=== PATIENT | female | born 1990 | race Caucasian/White ===

== ENCOUNTER 2020-10-28 09:24 | Inpatient (IN) | payer OTHER ==
[2020-10-28] MEDS ORDERED: Sodium Chloride 0.9% 10 ML Syringe FLUSH PRN (09:44)
[2020-10-28] MEDS ORDERED: Ondansetron 4 MG/2 ML SDV IVPUSH PRN (09:44)
[2020-10-28] MEDS ORDERED: Methylergonovine 0.2 MG/1 ML Amp IM PRN (09:44)
[2020-10-28] MEDS ORDERED: Lactated Ringers 1,000 ML IV ONE (09:44)
[2020-10-28] MEDS ORDERED: Carboprost Tromethamine 250 MCG/1 ML Amp IM PRN (09:44)
[2020-10-28] MEDS ORDERED: Misoprostol 400 MCG (4 X 100 MCG TAB) RECTAL PRN (09:44)
[2020-10-28] MEDS ORDERED: Lidocaine 1% 30 ML SDV INJECT PRN (09:44)
[2020-10-28] MEDS ORDERED: Tranexamic Acid 1,000 MG in Sodium Chloride 0.9% 100 ML IV PRN (09:44)
[2020-10-28] MEDS: Lactated Ringers 1,000 ML IV SCH ×2 (12:42→20:38)
[2020-10-28] MEDS: Oxytocin/Normal Saline 30 UNIT/500 ML BAG IV SCH (12:43)
--- NOTE | 2020-10-28 16:50 | PCM.DEL ---
L & D Note - General Info Date of Service: 10/28/20 - Patient Data Vitals - Most Recent: Last Vital Signs Temp 98.6 F 10/28/20 09:56 Pulse 100 10/28/20 12:50 Resp BP 117/76 10/28/20 12:50 Pulse Ox Weight - Most Recent: 170 lb Lab Results Last 24 Hours: Laboratory Results - last 24 hr 10/28/20 10/28/20 10/28/20 Range/Units 10:00 11:12 11:12 WBC 11.3 H (5.0-10.0) 10^3/uL RBC 4.12 L (4.2-5.4) 10^6/uL Hgb 12.4 (12.0-16.0) g/dL Hct 36.4 L (37.0-47.0) % MCV 88.3 (80-100) fL MCH 30.1 (27.0-34.0) pg MCHC 34.1 (33.0-35.0) g/dL Plt Count 277 (150-450) 10^3/uL SARS-CoV-2 RNA (VERNON) Negative (NEGATIVE) Blood Type O POSITIVE Gel Antibody Screen Negative Med Orders - Current: Current Medications Acetaminophen (Tylenol) 650 mg PO Q4H PRN PRN Reason: Pain (Mild 1-3) and fever Carboprost Tromethamine (Hemabate Ds) 250 mcg IM ASDIRECTED PRN PRN Reason: HEMORRHAGE Tranexamic Acid 1,000 mg/ (Sodium Chloride) 110 mls @ 660 mls/hr IV ONETIME PRN PRN Reason: Bleeding Oxytocin/Sodium Chloride (Pitocin In Ns 30 Unit/500 Ml) 30 unit in 500 mls @ 2 mls/hr IV TITRATE KADIE; Protocol Last Titration: 10/28/20 14:05 Dose: 6 munits/min, 6 mls/hr Documented by: Lactated Ringer's (Ringers, Lactated) 1,000 mls @ 125 mls/hr IV ASDIRECTED KADIE Last Admin: 10/28/20 12:42 Dose: 125 mls/hr Documented by: Lidocaine HCl (Xylocaine-Mpf 1%) 30 ml INJECT ASDIRECTED PRN PRN Reason: Perineal Repair Methylergonovine Maleate (Methergine) 0.2 mg IM ASDIRECTED PRN PRN Reason: Hemorrhage Misoprostol (Cytotec) 800 mcg RECTAL ASDIRECTED PRN PRN Reason: Hemorrhage Ondansetron HCl (Zofran) 4 mg IVPUSH Q4H PRN PRN Reason: Nausea/Vomiting Sodium Chloride (Saline Flush) 10 ml FLUSH ASDIRECTED PRN PRN Reason: Keep Vein Open Discontinued Medications Lactated Ringer's (Ringers, Lactated) 1,000 mls @ 999 mls/hr IV BOLUS ONE Stop: 10/28/20 10:44 - My Orders Last 24 Hours: My Active Orders 10/28/20 09:44 Patient Status [ADT] Routine Communication Order [RC] ASDIRECTED Notify Provider Vital Signs OB [RC] ASDIRECTED Notify Provider [RC] PRN Up ad Maria D [RC] ASDIRECTED Vital Signs [RC] 08,20 Acetaminophen [TylenoL] 650 mg PO Q4H PRN Carboprost Tromethamine [Hemabate DS] 250 mcg IM ASDIRECTED PRN Lidocaine 1% [Xylocaine-MPF 1%] 30 ml INJECT ASDIRECTED PRN Methylergonovine [Methergine] 0.2 mg IM ASDIRECTED PRN Ondansetron [Zofran] 4 mg IVPUSH Q4H PRN Sodium Chloride 0.9% [Saline Flush] 10 ml FLUSH ASDIRECTED PRN Tranexamic Acid [Cyklokapron] 1,000 mg Sodium Chloride 0.9% [Normal Saline] 100 ml IV ONETIME miSOPROStoL [Cytotec] 800 mcg RECTAL ASDIRECTED PRN Saline Lock Insert [OM.PC] Routine Resuscitation Status Routine 10/28/20 09:45 Lactated Ringers [Ringers, Lactated] 1,000 ml IV ASDIRECTED Oxytocin/Normal Saline [Pitocin in NS 30 UNIT/500 ML] 30 unit in 500 ml IV TITRATE 10/28/20 09:46 Pump Management, Intrathecal [RC] ASDIRECTED
--- NOTE | 2020-10-28 18:18 | PCM.LDHP ---
L&D History of Present Illness - General Date of Service: 10/28/20 (Admit ) Admit Problem/Dx: Patient Status Order with Admit Dx/Problem 10/28/20 09:44 Patient Status [ADT] Routine Admission Diagnosis/Problem Admission Diagnosis/Problem Unstable lie Source of Information: Patient, Family History Limitations: Reports: No Limitations - History of Present Illness Introduction:: Gilda is a delightful 30yo in at 39w1d for induction due to high risk with hx of macrosomia and unstable lie in a term multip that lives remote from hospital with a ripe cervix. she has low-lying anterior placenta now nearly 4cm from os. induction when AWNING ERECTOR here. see [facility] episode for details. hmb Timing/Duration: Reports: other (B) Location, : Reports: Uterus - Related Data Allergies/Adverse Reactions: Allergies Allergy/AdvReac Type Severity Reaction Status Date / Time No Known Allergies Allergy Verified 10/28/20 10:47 Home Medications: Home Meds Pnv No.95/Ferrous Fum/Folic AC [ Tablet] 1 tab PO DAILY 10/08/20 [History] Past Medical History Gastrointestinal History: Reports: None Other Gastrointestinal History: family hx of colon cancer and polyps AWNING ERECTOR History: Reports: Spontaneous , Therapeutic : 6 Para: 3 LMP (Approximate): Other OB/BYN History: Therapeudic due to screen positive for Trisomy 21 - Infectious Disease History Infectious Disease History: Reports: Chicken Pox - Past Surgical History HEENT Surgical History: Reports: Adenoidectomy, Tonsillectomy Other HEENT Surgeries/Procedures: both in 2011 GI Surgical History: Reports: Colonoscopy Other GI Surgeries/Procedures: Colonoscopy 2019 due to lower abdominal pain and family hx of colon cancer. Test negative Female Surgical History: Reports: D&C Social & Family History - Family History Family Medical History: No Pertinent Family History GI: Reports: Colon Polyps, Other (See Below) Other GI Family History: Colon Cancer Oncologic: Reports: Colon - Tobacco Use Tobacco Use Status *Q: Never Tobacco User Second Hand Smoke Exposure: No - Caffeine Use Caffeine Use: Reports: None - Recreational Drug Use Recreational Drug Use: No - Living Situation & Occupation Living situation: Reports: Social History Comment: . met in [place]. he is from [place], she from [place]. have 2 children and moved back--were living with her in-laws, but just moved into house in [place]. He will now be working in [place]. H&P Review of Systems - Review of Systems: Review Of Systems: Comprehensive ROS is negative, except as noted in HPI. L&D Exam - Exam Exam: See Below - Vital Signs Vital Signs: Last Vital Signs Temp 98.6 F 10/28/20 09:56 Pulse 100 10/28/20 12:50 Resp BP 117/76 10/28/20 12:50 Pulse Ox Weight: 170 lb - OB Specific Contraction Duration (sec): 60-70 Contraction Frequency (min): 2 Contraction Intensity: Moderate Movement: Active Heart Tones: Present Heart Tones per Min: 135 Heart Rate (FHR) Variability: Moderate (6-25 bmp) Presentation: Left Occiput Anterior (MARCUS) - Vance Score Vance Score Cervix Position: Anterior Vance Score Consistency: Soft Vance Score Effacement: 0-30% Vance Score Dilation: 1-2 cm Vance Score Infant's Station: -2 Vance Score Total: 6 - Exam General: Alert, Oriented HEENT: Conjunctiva Clear, EOMI, Hearing Intact, Nares Patent, Pupils Equal, Pupils Reactive Neck: Supple Lungs: Clear to Auscultation, Normal Respiratory Effort Cardiovascular: Regular Rate, Regular Rhythm GI/Abdominal Exam: Soft, Non-Tender Rectal Exam: Normal Exam, Deferred Genitourinary: Normal external exam, Cervical dilitation, Enlarged uterus Back Exam: Normal Inspection, Full Range of Motion Extremities: Normal Inspection Skin: Warm, Dry, Intact Neurological: Normal Gait, Normal Speech, Normal Tone Psychiatric: Alert, Normal Affect, Normal Mood - Patient Data Lab Results Last 24 hrs: Laboratory Results - last 24 hr 10/28/20 10/28/20 10/28/20 Range/Units 10:00 11:12 11:12 WBC 11.3 H (5.0-10.0) 10^3/uL RBC 4.12 L (4.2-5.4) 10^6/uL Hgb 12.4 (12.0-16.0) g/dL Hct 36.4 L (37.0-47.0) % MCV 88.3 (80-100) fL MCH 30.1 (27.0-34.0) pg MCHC 34.1 (33.0-35.0) g/dL Plt Count 277 (150-450) 10^3/uL SARS-CoV-2 RNA (VERNON) Negative (NEGATIVE) Blood Type O POSITIVE Gel Antibody Screen Negative Result Diagrams: 10/28/20 11:12 - Problem List (1) Term SNOMED Code(s): 62795584 ICD Code: Z34.90 - ENCNTR FOR SUPRVSN OF NORMAL , UNSP, UNSP TRIMESTER Status: Acute Current Visit: Yes (2) High risk , antepartum SNOMED Code(s): 33253841 ICD Code: O09.90 - SUPERVISION OF HIGH RISK , UNSP, UNSP TRIMESTER Status: Acute Current Visit: Yes (3) History of macrosomia in in prior , currently in third trimester SNOMED Code(s): 248286646, 457211939, 00349384525144 ICD Code: O09.293 - SUPRVSN OF PREG W POOR REPRODCTV OR OBSTET HX, THIRD TRI Status: Acute Current Visit: Yes (4) Unstable lie, antepartum condition or complication SNOMED Code(s): 349333488 ICD Code: O32.0XX0 - MATERNAL CARE FOR UNSTABLE LIE, NOT APPLICABLE OR UNSP Status: Acute Current Visit: Yes (5) Low-lying placenta without hemorrhage, third trimester SNOMED Code(s): 313172069, 309873368 ICD Code: O44.43 - LOW LYING PLACENTA NOS OR WITHOUT HEMOR, THIRD TRIMESTER Status: Acute Current Visit: Yes (6) Blood type O+ SNOMED Code(s): 070752393 ICD Code: Z67.40 - TYPE O BLOOD, RH POSITIVE Status: Acute Current Visit: Yes (7) Rubella non-immune status, antepartum SNOMED Code(s): 380752699 ICD Code: O99.891 - OTH DISEASES AND CONDITIONS COMPLICATING ; Z28.3 - UNDERIMMUNIZATION STATUS Status: Acute Current Visit: Yes (8) Group B Streptococcus not isolated SNOMED Code(s): 062136123 ICD Code: [id number] - Status: Acute Current Visit: Yes Problem List Initiated/Reviewed/Updated: Yes Orders Last 24hrs: Active Orders 24 hr Category Date Time Status Patient Status [ADT] Routine ADT 10/28/20 09:44 Active Communication Order [RC] ASDIRECTED Care 10/28/20 09:44 Active Notify Provider Vital Signs OB [RC] ASDIRECTED Care 10/28/20 09:44 Active Notify Provider [RC] PRN Care 10/28/20 09:44 Active Pump Management, Intrathecal [RC] ASDIRECTED Care 10/28/20 09:46 Active Up ad Maria D [RC] ASDIRECTED Care 10/28/20 09:44 Active Vital Signs [RC] 08,20 Care 10/28/20 09:44 Active Acetaminophen [TylenoL] Med 10/28/20 09:44 Active 650 mg PO Q4H PRN Carboprost Tromethamine [Hemabate DS] Med 10/28/20 09:44 Active 250 mcg IM ASDIRECTED PRN Lactated Ringers [Ringers, Lactated] 1,000 ml Med 10/28/20 09:45 Active IV ASDIRECTED Lidocaine 1% [Xylocaine-MPF 1%] Med 10/28/20 09:44 Active 30 ml INJECT ASDIRECTED PRN Methylergonovine [Methergine] Med 10/28/20 09:44 Active 0.2 mg IM ASDIRECTED PRN Ondansetron [Zofran] Med 10/28/20 09:44 Active 4 mg IVPUSH Q4H PRN Oxytocin/Normal Saline [Pitocin in NS 30 UNIT/500 ML] Med 10/28/20 09:45 Active 30 unit in 500 ml IV TITRATE Sodium Chloride 0.9% [Saline Flush] Med 10/28/20 09:44 Active 10 ml FLUSH ASDIRECTED PRN Tranexamic Acid [Cyklokapron] 1,000 mg Med 10/28/20 09:44 Active Sodium Chloride 0.9% [Normal Saline] 100 ml IV ONETIME miSOPROStoL [Cytotec] Med 10/28/20 09:44 Active 800 mcg RECTAL ASDIRECTED PRN Saline Lock Insert [OM.PC] Routine Oth 10/28/20 09:44 Ordered Resuscitation Status Routine Resus Stat 10/28/20 09:44 Ordered Medication Orders Acetaminophen (Tylenol) 650 mg PO Q4H PRN PRN Reason: Pain (Mild 1-3) and fever Carboprost Tromethamine (Hemabate Ds) 250 mcg IM ASDIRECTED PRN PRN Reason: HEMORRHAGE Tranexamic Acid 1,000 mg/ (Sodium Chloride) 110 mls @ 660 mls/hr IV ONETIME PRN PRN Reason: Bleeding Oxytocin/Sodium Chloride (Pitocin In Ns 30 Unit/500 Ml) 30 unit in 500 mls @ 2 mls/hr IV TITRATE KADIE; Protocol Last Titration: 10/28/20 16:45 Dose: 12 munits/min, 12 mls/hr Documented by: Titration: 10/28/20 16:12 Dose: 10 munits/min, 10 mls/hr Documented by: Titration: 10/28/20 15:42 Dose: 8 munits/min, 8 mls/hr Documented by: Titration: 10/28/20 14:05 Dose: 6 munits/min, 6 mls/hr Documented by: Titration: 10/28/20 13:21 Dose: 4 munits/min, 4 mls/hr Documented by: Admin: 10/28/20 12:43 Dose: 2 munits/min, 2 mls/hr Documented by: [place] Lactated Ringer's (Ringers, Lactated) 1,000 mls @ 125 mls/hr IV ASDIRECTED KADIE Last Admin: 10/28/20 12:42 Dose: 125 mls/hr Documented by: [place] Lidocaine HCl (Xylocaine-Mpf 1%) 30 ml INJECT ASDIRECTED PRN PRN Reason: Perineal Repair Methylergonovine Maleate (Methergine) 0.2 mg IM ASDIRECTED PRN PRN Reason: Hemorrhage Misoprostol (Cytotec) 800 mcg RECTAL ASDIRECTED PRN PRN Reason: Hemorrhage Ondansetron HCl (Zofran) 4 mg IVPUSH Q4H PRN PRN Reason: Nausea/Vomiting Sodium Chloride (Saline Flush) 10 ml FLUSH ASDIRECTED PRN PRN Reason: Keep Vein Open Assessment/Plan Comment:: Assessment: 30yo @ 39w1d for induction of high risk Hx macrosomia Unstable lie low-lying anterior placenta--now 4cm from os GBS negative blood type O+ rubella non-immune NST reactive COVID negative Plan: pt admitted. pitocin started per protocol will AROM when able. anticipate vaginal delivery. Dr. Astorga aware. all questison answered for this delightful couple. they are happy with plan and care. b
--- NOTE | 2020-10-28 20:21 | PCM.SN.2 ---
- Free Text/Narrative Note: DOS: 10-28-201999 PM Doing well. Pitocin @ 14. CXNS mild. tracing reassuring cervix nearly 4cm with cxn. still long vertex, confirmed by QLUS AROM carried out with return of copious amount of clear fluid continue to monitor closely. increase pitocin as able. further management pending her clinical course in labor. Dr. Astorga updated, anesthesia also. b
[2020-10-28] MEDS ORDERED: EPINEPHrine 1 MG/1 ML Amp ONE (21:01)
[2020-10-28] MEDS ORDERED: fentaNYL 100 MCG/2 ML SDV ONE (21:01)
[2020-10-28] MEDS ORDERED: Sodium Bicarbonate 4.2% 2.5 MEQ/5 ML SDV ONE (21:02)
--- NOTE | 2020-10-28 21:24 | PCM.SN.2 ---
- Free Text/Narrative Note: Intrathecal. Sitting position, sterile prep and drape. 1% lidocaine w bicarb for skinwheal to L2 L3 interspace. Introducer, 24 ga pencan x 1. Pos CSF, neg heme, neg parasthesia. 0.1 ml PF 1:1000 epi, 20 mcg pf sufenta, 30 mcg pf fentanyl, 0.4 ml pf NS and 6 mg of 0.75% pf Marcaine injected after CSF aspiration. Pt to L lateral position. Procedure time 2100 to 2130
[2020-10-29] MEDS ORDERED: Sodium Bicarbonate 4.2% 2.5 MEQ/5 ML SDV ONE (00:01)
[2020-10-29] MEDS ORDERED: fentaNYL 100 MCG/2 ML SDV ITHECAL ONE (00:01)
[2020-10-29] MEDS ORDERED: Sodium Chloride 0.9% 20 ML SDV ONE (00:01)
[2020-10-29] MEDS ORDERED: EPINEPHrine 1 MG/1 ML Amp ONE (00:01)
[2020-10-29] MEDS ORDERED: Measles, Mumps & Rubella Vaccine 0.5 ML SDV SUBCUT ONE (02:13)
[2020-10-29] MEDS ORDERED: Docusate Sodium 100 MG Cap PO PRN (02:13)
[2020-10-29] MEDS ORDERED: Simethicone 80 MG Tab.Chew PO PRN (02:13)
[2020-10-29] MEDS ORDERED: Benzocaine/Menthol 20%-0.5% Spray 56 GM Canister TOP PRN (02:13)
[2020-10-29] MEDS ORDERED: Zolpidem 5 MG Tab PO PRN (02:13)
[2020-10-29] MEDS: Oxytocin/Normal Saline 30 UNIT/500 ML BAG IV SCH (02:15)
--- NOTE | 2020-10-29 02:23 | PCM.DEL ---
L & D Note - General Info Date of Service: 10/29/20 (time of delivery 0057) Mother's Due Date: 11/03/20 (39w2d) - Delivery Note Labor: Induced by Oxytocin Cervical Ripening Method: Oxytocin Delivery Outcome: Livebirth Infant Delivery Method: Spontaneous Vaginal Delivery-Single Delivery Mode: Vacuum Extraction Presentation: Left Occiput Anterior (MARCUS) Nuchal Cord: None Prep: Povidone-Iodine (Betadine Anesthesia Type: Intrathecal Amniotic Fluid Description: Clear Episiotomy Type: None Laceration: None Placenta: Intact, Expressed Cord: 3 Vessels Estimated Blood Loss: 350 Resuscitation Needed: No [place]: Bulb Syringe, Stimulated, Warmed, [place] Used Provider: Meme Lazo Score 1 min: 7 Score 5 min: 9 Second Stage Interventions: Reports: Pushing Effectively, Pushing, Pulls Own Legs Back Delivery Comments (Free Text/Narrative):: 30yo WF induced for unstable lie and hx macrosomia started on pitocin on arrival today. AROM carried out with return copious clear fluid. intrathecal placed. progressed to complete and pushing well, baby slipping back up between contractions. low profile vacuum placed , and with one cxn brought to , then delivery of the head. rest of baby delivered without difficulty over intact perineum. suctioned and dried/stimulated with strong cry. placed on mom's abdomen for skin to skin contact, bonding and nursing. APGARs 7 & 9 BW 3865g/ 8lb 8oz cord doubly clamped by me, then cut by FOB cord blood sample obtained. placenta delivered intact fundus boggy intermittently, abhay anterior and fundal portions pitocin infusing, and methergine dose given X 1 EBL 350, clots expressed perineum intact mom and baby stable. routine orders and cares hmb Vacuum Extractor Progress Note - Alternative Labor Strategies Considered Alternative Labor Strategies Considered:: Reports: Yes Strategies Considered:: Reports: Contraction Intensity Adequate, Position Changes Used to Facilitate Rotation & Descent, Empty Bladder Indications Considered:: Reports: Yes Indications:: Reports: Shortening of 2nd Stage for Maternal Benefit - Patient Prepared Patient Prepared:: Reports: Yes Informed Consent:: Reports: Yes Risks: Reports: Yes Anesthesia/Analgesia Adequate:: Reports: Yes - Probability of Success High Probability of Success:: Reports: Yes Weight Estimated:: Reports: AGA Patient Diabetic:: Reports: No Pelvis Adequate:: Reports: Yes Asynclitic:: Reports: No - Application Time Maximum Application Time & Number of Pop-Offs Predetermined:: Reports: Yes Type of Vacuum Used:: Reports: Low profile Vacuum Extraction: Successful - Exit Strategy Exit strategy available:: Reports: Yes and resuscitation teams readily available:: Reports: Yes Consult as indicated:: not indicated/necessary Comments:: vacuum applied with one cxn. hmb - General Info Date of Service: 10/29/20 (time of delivery 005) - Patient Data Vitals - Most Recent: Last Vital Signs Temp 97.8 F 10/28/20 22:45 Pulse 78 10/28/20 23:20 Resp 18 10/28/20 23:20 BP 103/60 10/28/20 23:20 Pulse Ox 98 10/28/20 23:20 Weight - Most Recent: 170 lb I&O - Last 24 Hours: Intake & Output 10/28/20 10/28/20 10/29/20 14:59 22:59 06:59 Intake Total 1000 Balance 1000 Lab Results Last 24 Hours: Laboratory Results - last 24 hr 10/28/20 10/28/20 10/28/20 Range/Units 10:00 11:12 11:12 WBC 11.3 H (5.0-10.0) 10^3/uL RBC 4.12 L (4.2-5.4) 10^6/uL Hgb 12.4 (12.0-16.0) g/dL Hct 36.4 L (37.0-47.0) % MCV 88.3 (80-100) fL MCH 30.1 (27.0-34.0) pg MCHC 34.1 (33.0-35.0) g/dL Plt Count 277 (150-450) 10^3/uL SARS-CoV-2 RNA (VERNON) Negative (NEGATIVE) Blood Type O POSITIVE Gel Antibody Screen Negative Med Orders - Current: Current Medications Acetaminophen (Tylenol) 650 mg PO Q4H PRN PRN Reason: Pain (Mild 1-3) and fever Benzocaine/Menthol (Dermoplast Pain Relief [place]) 0 gm TOP Q4H PRN PRN Reason: Perineal comfort measures Carboprost Tromethamine (Hemabate Ds) 250 mcg IM ASDIRECTED PRN PRN Reason: HEMORRHAGE Docusate Sodium (Colace) 100 mg PO BID PRN PRN Reason: Constipation Tranexamic Acid 1,000 mg/ (Sodium Chloride) 110 mls @ 660 mls/hr IV ONETIME PRN PRN Reason: Bleeding Oxytocin/Sodium Chloride (Pitocin In Ns 30 Unit/500 Ml) 30 unit in 500 mls @ 2 mls/hr IV TITRATE KADIE; Protocol Last Titration: 10/28/20 23:15 Dose: 24 munits/min, 24 mls/hr Documented by: Lactated Ringer's (Ringers, Lactated) 1,000 mls @ 125 mls/hr IV ASDIRECTED KADIE Last Admin: 10/28/20 20:38 Dose: 125 mls/hr Documented by: Ibuprofen (Motrin) 800 mg PO Q8H PRN PRN Reason: Mild Pain or Fever Lidocaine HCl (Xylocaine-Mpf 1%) 30 ml INJECT ASDIRECTED PRN PRN Reason: Perineal Repair Methylergonovine Maleate (Methergine) 0.2 mg IM ASDIRECTED PRN PRN Reason: Hemorrhage Last Admin: 10/29/20 01:35 Dose: 0.2 mg Documented by: Misoprostol (Cytotec) 800 mcg RECTAL ASDIRECTED PRN PRN Reason: Hemorrhage Ondansetron HCl (Zofran) 4 mg IVPUSH Q4H PRN PRN Reason: Nausea/Vomiting Last Admin: 10/28/20 20:58 Dose: 4 mg Documented by: Prenat Multivit/[place]/Iron/Folic Ac ( Plus Iron) 1 each PO DAILY [facility] Simethicone (Simethicone) 80 mg PO Q4H PRN PRN Reason: Gas Sodium Chloride (Saline Flush) 10 ml FLUSH ASDIRECTED PRN PRN Reason: Keep Vein Open Zolpidem Tartrate (Ambien) 5 mg PO BEDTIME PRN PRN Reason: Insomnia Discontinued Medications Epinephrine HCl (Adrenalin) Confirm Administered Dose 1 mg .ROUTE .STK-MED ONE Stop: 10/28/20 21:02 Last Admin: 10/28/20 23:10 Dose: Not Given Documented by: Fentanyl (Sublimaze) Confirm Administered Dose 100 mcg .ROUTE .STK-MED ONE Stop: 10/28/20 21:02 Last Admin: 10/28/20 23:09 Dose: Not Given Documented by: Lactated Ringer's (Ringers, Lactated) 1,000 mls @ 999 mls/hr IV BOLUS ONE Stop: 10/28/20 10:44 Last Admin: 10/28/20 23:10 Dose: Not Given Documented by: Sodium Bicarbonate (Sodium Bicarbonate 4.2%) Confirm Administered Dose 2.5 meq .ROUTE .STK-MED ONE Stop: 10/28/20 21:03 Last Admin: 10/28/20 23:09 Dose: Not Given Documented by: Sufentanil Citrate (Sufenta) Confirm Administered Dose 50 mcg .ROUTE .STK-MED ONE Stop: 10/28/20 21:03 Last Admin: 10/28/20 23:09 Dose: Not Given Documented by: - Problem List & Annotations (1) Term SNOMED Code(s): 16882711 Code(s): Z34.90 - ENCNTR FOR SUPRVSN OF NORMAL , UNSP, UNSP TRIMESTER Status: Acute Current Visit: Yes (2) High risk , antepartum SNOMED Code(s): 58691306 Code(s): O09.90 - SUPERVISION OF HIGH RISK , UNSP, UNSP TRIMESTER Status: Acute Current Visit: Yes (3) History of macrosomia in in prior , currently in third trimester SNOMED Code(s): 789271839, 489997507, 88435844788323 Code(s): O09.293 - SUPRVSN OF PREG W POOR REPRODCTV OR OBSTET HX, THIRD TRI Status: Acute Current Visit: Yes (4) Unstable lie, antepartum condition or complication SNOMED Code(s): 951182604 Code(s): O32.0XX0 - MATERNAL CARE FOR UNSTABLE LIE, NOT APPLICABLE OR UNSP Status: Acute Current Visit: Yes (5) Low-lying placenta without hemorrhage, third trimester SNOMED Code(s): 891731242, 501661479 Code(s): O44.43 - LOW LYING PLACENTA NOS OR WITHOUT HEMOR, THIRD TRIMESTER Status: Acute Current Visit: Yes (6) Blood type O+ SNOMED Code(s): 675883143 Code(s): Z67.40 - TYPE O BLOOD, RH POSITIVE Status: Acute Current Visit: Yes (7) Rubella non-immune status, antepartum SNOMED Code(s): 650316721 Code(s): O99.891 - OTH DISEASES AND CONDITIONS COMPLICATING ; Z28.3 - UNDERIMMUNIZATION STATUS Status: Acute Current Visit: Yes (8) Group B Streptococcus not isolated SNOMED Code(s): 059389471 Code(s): PLC4895 - Status: Acute Current Visit: Yes (9) Vacuum extraction, delivered, current hospitalization SNOMED Code(s): 002379263 Code(s): O66.5 - ATTEMPTED APPLICATION OF VACUUM EXTRACTOR AND FORCEPS Status: Acute Current Visit: Yes (10) Mother currently breast-feeding SNOMED Code(s): 225315779 Code(s): Z39.1 - ENCOUNTER FOR CARE AND EXAMINATION OF LACTATING MOTHER Status: Acute Current Visit: Yes - Problem List Review Problem List Initiated/Reviewed/Updated: Yes - My Orders Last 24 Hours: My Active Orders 10/28/20 09:44 Patient Status [ADT] Routine Communication Order [RC] ASDIRECTED Notify Provider Vital Signs OB [RC] ASDIRECTED Notify Provider [RC] PRN Up ad Maria D [RC] ASDIRECTED Vital Signs [RC] 08,20 Acetaminophen [TylenoL] 650 mg PO Q4H PRN Carboprost Tromethamine [Hemabate DS] 250 mcg IM ASDIRECTED PRN Lidocaine 1% [Xylocaine-MPF 1%] 30 ml INJECT ASDIRECTED PRN Methylergonovine [Methergine] 0.2 mg IM ASDIRECTED PRN Ondansetron [Zofran] 4 mg IVPUSH Q4H PRN Sodium Chloride 0.9% [Saline Flush] 10 ml FLUSH ASDIRECTED PRN Tranexamic Acid [Cyklokapron] 1,000 mg Sodium Chloride 0.9% [Normal Saline] 100 ml IV ONETIME miSOPROStoL [Cytotec] 800 mcg RECTAL ASDIRECTED PRN Saline Lock Insert [OM.PC] Routine Resuscitation Status Routine 10/28/20 09:45 Lactated Ringers [Ringers, Lactated] 1,000 ml IV ASDIRECTED Oxytocin/Normal Saline [Pitocin in NS 30 UNIT/500 ML] 30 unit in 500 ml IV TITRATE 10/28/20 09:46 Pump Management, Intrathecal [RC] ASDIRECTED 10/28/20 22:43 Communication Order [RC] PER UNIT ROUTINE Communication Order [RC] ROUTINE 10/29/20 02:13 Vital Signs [RC] PFP Consult to Automotive Power Electronics Engineer [CONS] Routine Benzocaine/Menthol [Dermoplast Pain Relief [place]] See Dose Instructions TOP Q4H PRN Docusate Sodium [Colace] 100 mg PO BID PRN Ibuprofen [Motrin] 800 mg PO Q8H PRN Measles, Mumps & Rubella [M-M-R II Vaccine] 0.5 ml SUBCUT .ONCE ONE Simethicone 80 mg PO Q4H PRN Zolpidem [Ambien] 5 mg PO BEDTIME PRN Assess Lochia [WOMSER] Per Unit Routine Assess Uterine Involution [WOMSER] Per Unit Routine Breast Pump [WOMSER] Per Unit Routine Ice Therapy [OM.PC] Per Unit Routine Perineal Care [OM.PC] Per Unit Routine Sitz Bath [OM.PC] Per Unit Routine 10/29/20 02:15 Vaccines to be Administered [RC] PER UNIT ROUTINE 10/29/20 Breakfast Regular Diet [DIET] 10/29/20 09:00 Vit with Ca/FA/Iron [ Plus Iron] 1 each PO DAILY - Plan Plan:: Assessment: 30yo @ 39w1d for induction of high risk Hx macrosomia Unstable lie low-lying anterior placenta--now 4cm from os GBS negative blood type O+ rubella non-immune NST reactive COVID negative Plan: pt admitted. pitocin started per protocol will AROM when able. anticipate vaginal delivery. Dr. Astorga aware. all questison answered for this delightful couple. they are happy with plan and care. [facility] Delivery: 10-28-20 0057: Duncan Rangel 3865g/ 8lb 8oz VAVD (low profile X 1 cxn) APGARs 7 & 9 intact perineum baby skin to skin and nursing. [facility]
[2020-10-29] MEDS: Ibuprofen 800 MG Tab PO PRN ×2 (05:18→17:13)
[2020-10-29] MEDS: Acetaminophen 325 MG Tab PO PRN ×2 (05:19→09:14)
[2020-10-29] MEDS: Prenatal Multivitamin with Calcium/Folic Acid/Iron Tab PO SCH (09:10)
[2020-10-29] MEDS ORDERED: Witch Hazel Medicated Pads 100/Jar TOP PRN (17:03)
[2020-10-30] MEDS: Prenatal Multivitamin with Calcium/Folic Acid/Iron Tab PO SCH (08:43)
[2020-10-30] MEDS: Acetaminophen 325 MG Tab PO PRN (08:43)
--- NOTE | 2020-10-30 18:31 | PN ---
DATE: 10/30/2020 SUBJECTIVE: The patient is day 1, status post vaginal delivery. Mom and baby are both doing well. Her bleeding is minimal. PHYSICAL EXAMINATION: Vital Signs: She is afebrile. Heart rate is 78 to 90, blood pressure 103 to 111 systolic over 59 to 70 diastolic, respiratory rate 16 to 20, O2 sat 98%. Genitourinary: Fundus is firm below the umbilicus. Lochia is minimal. Extremities: No tenderness. No edema. LABORATORY DATA: The patient's blood type is O positive. She is rubella immune. Pre-delivery hemoglobin was 12.4. There was no hemorrhage. She was tested COVID-negative upon admission. ASSESSMENT AND PLAN: Therefore, day 1 status post vaginal delivery. Mom and baby are both doing well. We will discharge her to home with followup in 6 weeks. [facility] /[id number]
== END 2020-10-30 13:15 | disposition home or self-care (01) | DRG 806 ==
LOC: DL.OBCHECK 09:24 → DL.OB 09:44 → OBSVTOIN 10-29 00:57 → DL.MS 10-29 10:44
PROVIDERS: ADMIT Family Medicine; ATTEND Family Medicine
PROC: 10D07Z6 Extraction of Products of Conception, Vacuum, Via Natural or Artificial Opening (ICD-10-PCS; principal; 2020-10-29)
PROC: 3E033VJ Introduction of Other Hormone into Peripheral Vein, Percutaneous Approach (ICD-10-PCS; 2020-10-29)
PROC: 10907ZC Drainage of Amniotic Fluid, Therapeutic from Products of Conception, Via Natural or Artificial Opening (ICD-10-PCS; 2020-10-29)
DX: O32.0XX1 Maternal care for unstable lie, fetus 1 (principal); O44.43 Low lying placenta NOS or without hemorrhage, third trimester; Z37.0 Single live birth; Z3A.39 39 weeks gestation of pregnancy; Z67.40 Type O blood, Rh positive; Z20.822 Contact with and (suspected) exposure to COVID-19
CPT/HCPCS: 01967; 36415; 59409; 85027; 86850; 86900; 86901; 90471; 90707; A9270-GY; J0171; J2210; J2405; J2590; J3010; J7120; U0002